=== PATIENT | female | born 1970 | race American Indian/Alaskan Native ===

== ENCOUNTER 2016-11-16 11:13 | Emergency (ER) | payer MEDICAID ==
--- NOTE | 2016-11-16 11:58 | Emergency Department Report ---
Entered by NAEL ROMERO, acting as scribe for VAUGHN HAMILTON PA. Chief Complaint: Abdominal Pain Stated Complaint: LEFT EYE INJURY Time Seen by Provider: 11/16/16 11:48 - HPI History of Present Illness: Patient c/o left eye pain that began last night. Patient states she was reaching down and a fake plant stuck her in the eye. Describes pain as aching. Notes bleeding from left eye yesterday. Reports waking up with crusts in her eyes this morning. Reports left eye redness. Denies blurry vision. Patient also c/o of a possible UTI. Notes Hx of UTI Denies abdominal pain, nausea, and vomiting. Reports dysuria. Patient states her dysuria is relieved some with drinking water and cranberry juice. - ROS Review of Systems: All systems are negative unless stated in the HPI above. - Exam Vital Signs: Vital Signs 11/16/16 11:26 Temperature 99.4 F Pulse Rate 65 Respiratory 20 Rate Blood Pressure 128/80 O2 Sat by Pulse 100 Oximetry Physical Exam: GENERAL: Patient is alert and oriented x 3. No apparent distress, normal gait, atraumatic. Eye: Vision intact. Extraocular movements are intact. PERRL. left sclerae erythematous, mild ecchymoses on right side of the left eye, ABDOMEN: Soft, nondistended. Nontender to palpation on all quadrants. MSE screening note: Focused history and physical exam performed. Due to findings the following was ordered: ED Medical Decision Making - Medical Decision Making Patient screened by provider in triage area. Lab work sent in for patient. Patient to be seen by another provider on fast track side. ED Disposition for MSE Condition: Stable Instructions: Abdominal Pain (ED) This documentation as recorded by the scribe,NAEL ROMERO,accurately reflects the service I personally performed and the decisions made by ALFONSO mansfield OYINLOLA A, PA.
[2016-11-16 12:08] LABS: Bilirubin,Urine NEG (Negative); Blood,Urine SM (Negative); Ketones,Urine NEG (Negative); Leukocyte Esterase,Urine NEG (Negative); Mucus,Urine FEW /HPF; Nitrite,Urine NEG (Negative); Protein,Urine <15 mg/dL mg/dL (Negative); Urobilinogen,Urine < 2.0 mg/dL (<2.0); WBC,Urine < 1.0 /HPF (0.0-6.0)
[2016-11-16] MEDS ORDERED: FUL-GLO OP ONE (13:13)
[2016-11-16] MEDS ORDERED: TETRACAINE 0.5% OU ONE (13:13)
[2016-11-16] MEDS ORDERED: MOTRIN PO ONE (13:14)
--- NOTE | 2016-11-16 13:22 | Emergency Department Report ---
ED Eye Problem HPI - General Chief complaint: Abdominal Pain Stated complaint: LEFT EYE INJURY Time Seen by Provider: 11/16/16 11:56 Source: patient Mode of arrival: Ambulatory Limitations: No Limitations - History of Present Illness Initial comments: 46-year-old female presents with complaint of left eye pain. Patient states that yesterday while bending over to reach for something on the ground at home she accidentally poked her left eye with a dry branch sticking out of a floral arrangement. Patient states she felt pain immediately afterward and has had slightly blurry vision since. Patient visibly has redness of the conjunctiva of the left eye and injection. Patient states she does not wear glasses or contacts. States she irrigated her eye afterward. Patient is unaware of tetanus status. MD chief complaint: eye pain, eye redness Onset/Timin -: days(s) Onset Description: sudden Location: left eye If Injury: direct trauma (patient states she accidentally poked herself with a dry piece of branch on a floral arrangement) Severity: moderate Severity scale (0 -10): 5 If Pain, Quality: sharp Consistency: constant Context: trauma Treatments Prior to Arrival: irrigated eye - Related Data Previous Rx's Medication Instructions Recorded Last Taken Type Acetamin/Codeine 120-12Mg/5 ml 5 ml PO TID #60 ml 04/21/16 Unknown Rx [Tylenol/Codeine] Glycerin/Propylene Glycol 15 ml OP Q4H #1 bottle 11/16/16 Unknown Rx [Artificial Tears Drops] Ibuprofen [Motrin] 600 mg PO Q8H PRN #25 tablet 11/16/16 Unknown Rx Tobramycin 0.3% [Tobrex] 1 drop OS Q4H #1 bottle 11/16/16 Unknown Rx Allergies Allergy/AdvReac Type Severity Reaction Status Date / Time No Known Drug Allergies Allergy Unknown Verified 10/24/14 14:09 ED Review of Systems ROS: Stated complaint: LEFT EYE INJURY Other details as noted in HPI Constitutional: denies: chills, fever Eyes: eye pain, eye discharge (watery eye discharge). denies: vision change ENT: denies: ear pain, throat pain Respiratory: denies: cough, shortness of breath, wheezing Cardiovascular: denies: chest pain, palpitations Endocrine: no symptoms reported Gastrointestinal: denies: abdominal pain, nausea, diarrhea Genitourinary: denies: urgency, dysuria, discharge Musculoskeletal: denies: back pain, joint swelling, arthralgia Skin: denies: rash, lesions Neurological: denies: headache, weakness, paresthesias Psychiatric: denies: anxiety, depression Hematological/Lymphatic: denies: easy bleeding, easy bruising ED Past Medical Hx - Past Medical History Hx Hypertension: No Hx Diabetes: No Hx Liver Disease: No Hx Renal Disease: No Hx Sickle Cell Disease: No Hx Arthritis: No Hx Seizures: No Hx Asthma: No Hx COPD: No Hx HIV: No Additional medical history: Bronchitis - Surgical History Additional Surgical History: carpol tunnel, tubal ligation, Fibroid removal - Social History Smoking Status: Current Every Day Smoker Substance Use Type: None, Alcohol - Medications Home Medications: Home Medications Medication Instructions Recorded Confirmed Last Taken Type Acetamin/Codeine 120-12Mg/5 ml 5 ml PO TID #60 ml 04/21/16 Unknown Rx [Tylenol/Codeine] Glycerin/Propylene Glycol 15 ml OP Q4H #1 bottle 11/16/16 Unknown Rx [Artificial Tears Drops] Ibuprofen [Motrin] 600 mg PO Q8H PRN #25 tablet 11/16/16 Unknown Rx Tobramycin 0.3% [Tobrex] 1 drop OS Q4H #1 bottle 11/16/16 Unknown Rx ED Physical Exam - General Limitations: No Limitations General appearance: alert, in no apparent distress - Head Head exam: Present: atraumatic, normocephalic - Eye Eye exam: Present: normal appearance, PERRL, EOMI - Expanded Eye Exam Expanded Eyelids: Laceration: Left (small less than 1 cm vertical laceration on cornea near left medial canthus on fluorescein stain) Pupils: Regular, Round: Bilateral, Reactive: Bilateral Sclera/Conjunctival: Injection: Left (significant injection of the conjunctiva in the left eye more towards the medial canthus) Anterior chamber: Normal Inspection: Bilateral Visual acuity (R) = 20/: 20 Visual acuity (L) = 20/: 20 - ENT ENT exam: Present: mucous membranes moist - Neck Neck exam: Present: normal inspection - Respiratory Respiratory exam: Present: normal lung sounds bilaterally. Absent: respiratory distress - Cardiovascular Cardiovascular Exam: Present: regular rate, normal rhythm. Absent: systolic murmur, diastolic murmur, rubs, gallop - GI/Abdominal GI/Abdominal exam: Present: soft, normal bowel sounds - Extremities Exam Extremities exam: Present: normal inspection - Back Exam Back exam: Present: normal inspection - Neurological Exam Neurological exam: Present: alert, oriented X3 - Psychiatric Psychiatric exam: Present: normal affect, normal mood - Skin Skin exam: Present: warm, dry, intact, normal color. Absent: rash ED Course Vital Signs 11/16/16 11/16/16 11:26 13:33 Temperature 99.4 F Pulse Rate 65 Respiratory 20 18 Rate Blood Pressure 128/80 O2 Sat by Pulse 100 Oximetry ED Medical Decision Making - Medical Decision Making A/P: Large corneal abrasion/laceration to left cornea near medial canthus 1-CT orbits shows no globe rupture or visible foreign body on CT 2-extraocular movements are intact, vision is 20/20 both eyes and 20/20 in left eye, 20/20 right eye. Patient's vision has been unaffected by this incident no visible laceration overlying pupil or iris laceration is on cornea near medial canthus 3-tobramycin drops, tetanus updated today, artificial tears, Motrin when necessary 4-I provided patient with ophthalmology referrals and advised her to follow-up within the next few days to mitigate any long-term damage to the cornea or eyes. Patient stated she understood the importance of doing so and would do so. Critical care attestation.: If time is entered above; I have spent that time in minutes in the direct care of this critically ill patient, excluding procedure time. ED Disposition Clinical Impression: Corneal abrasion, left Qualifiers: Encounter type: initial encounter Qualified Code(s): S05.02XA - Injury of conjunctiva and corneal abrasion without foreign body, left eye, initial encounter Disposition: DC-01 TO HOME OR SELFCARE Is pt being admited?: No Does the pt Need Aspirin: No Condition: Stable Instructions: Corneal Abrasion (ED) Prescriptions: Glycerin/Propylene Glycol [Artificial Tears Drops] 15 ml OP Q4H #1 bottle Ibuprofen [Motrin] 600 mg PO Q8H PRN #25 tablet PRN Reason: Pain Tobramycin 0.3% [Tobrex] 1 drop OS Q4H #1 bottle Referrals: CHARLIE DUMONT MD [Staff Physician] - 3-5 Days Forms: Work/School Release Form(ED) Time of Disposition: 14:34
[2016-11-16] MEDS ORDERED: BOOSTRIX IM ONE (13:29)
--- NOTE | 2016-11-16 14:05 | Cat Scan Report ---
CT ORBITS WITHOUT CONTRAST: HISTORY: Injury, left eye pain. TECHNIQUE: Helical CT with sagittal and coronal reformatted images. FINDINGS: The visualized osseous structures are intact without fracture or malalignment. The paranasal sinuses are clear. The nasal septum is midline. The orbital rims are intact. The globes are symmetric with homogeneous density. The retro-orbital fat demonstrates no inflammatory stranding. The extraocular muscles are symmetric. The extraocular muscles and optic nerves demonstrate normal course. IMPRESSION: Unremarkable CT of the orbits.
[2016-11-16 14:43] VITALS: BP 132/81
== END 2016-11-16 14:44 | disposition home or self-care (01) ==
LOC: ED 11:13
DX: S05.02XA Injury of conjunctiva and corneal abrasion without foreign body, left eye, initial encounter (principal); F17.210 Nicotine dependence, cigarettes, uncomplicated; W22.8XXA Striking against or struck by other objects, initial encounter; Y93.89 Activity, other specified; Y92.89 Other specified places as the place of occurrence of the external cause; Y99.8 Other external cause status
CPT/HCPCS: 70480; 81001; 81025; 90471; 90715; 99284

== ENCOUNTER 2017-06-03 09:24 | Emergency (ER) | payer MEDICAID ==
[2017-06-03] MEDS ORDERED: PROVENTIL IH ONE (13:29)
[2017-06-03] MEDS ORDERED: TYLENOL/CODEINE PO ONE (13:29)
[2017-06-03] MEDS ORDERED: TORADOL IM ONE (13:29)
[2017-06-03] MEDS ORDERED: TORADOL ONE (13:34)
[2017-06-03 13:54] LABS: HCG Qualitative,Urine Negative (Negative)
[2017-06-03 14:01] LABS: Bacteria,Urine 4+ /HPF (Negative); Bilirubin,Urine NEG (Negative); Blood,Urine SM (Negative); Mucus,Urine 3+ /HPF; Nitrite,Urine POS (Negative)
[2017-06-03 14:02] LABS: Color,Urine Yellow (Yellow)
--- NOTE | 2017-06-03 14:20 | XRay Report ---
ROUTINE CHEST, TWO VIEWS: HISTORY: Wheezing, cough. The trachea, heart, mediastinal contour, lung brown and bony thorax are unremarkable. IMPRESSION: Unremarkable chest x-ray.
--- NOTE | 2017-06-03 15:43 | Emergency Department Report ---
Minor Respiratory - HPI Chief Complaint: Upper Respiratory Infection Stated Complaint: BAD COLD Duration: 5 Days Pain Location: Other (bodyaches, pleuritic chest pain while coughing) Minor Respiratory: Yes Rhinorrhea, Yes Able to Tolerate Fluids, Yes Cough, Yes Chest Pain (pleuritic while coughing), Yes Shortness of Breath, Yes Fever, No Sore Throat, No Ear Pain, No Sick Contacts, No Hemoptysis Other History: 46 year old female presents to ED with dry cough, congestion, wheezing, pleuritic chest pain when coughing, bodyaches x6 days. patient states she has history of chronic bronchitis. patient states LMP was today. ED Review of Systems ROS: Stated complaint: BAD COLD Other details as noted in HPI Constitutional: fever. denies: chills Eyes: denies: eye pain, eye discharge, vision change ENT: ear pain, congestion. denies: throat pain Respiratory: cough, shortness of breath, wheezing Cardiovascular: chest pain (pleuritic). denies: palpitations Endocrine: no symptoms reported Gastrointestinal: denies: abdominal pain, nausea, diarrhea Genitourinary: denies: urgency, dysuria, discharge Musculoskeletal: denies: back pain, joint swelling, arthralgia Skin: denies: rash, lesions Neurological: denies: headache, weakness, paresthesias, confusion, abnormal gait , vertigo Psychiatric: denies: anxiety, depression Hematological/Lymphatic: denies: easy bleeding, easy bruising ED Past Medical Hx - Past Medical History Previous Medical History?: Yes Hx Hypertension: No Hx Diabetes: No Hx Liver Disease: No Hx Renal Disease: No Hx Sickle Cell Disease: No Hx Arthritis: No Hx Seizures: No Hx Asthma: No Hx COPD: No Hx HIV: No Additional medical history: Bronchitis - Surgical History Past Surgical History?: Yes Additional Surgical History: carpol tunnel, tubal ligation, Fibroid removal - Social History Smoking Status: Current Every Day Smoker Substance Use Type: Non Opiate Pain, Other - Medications Home Medications: Home Medications Medication Instructions Recorded Confirmed Last Taken Type Acetamin/Codeine 120-12Mg/5 ml 5 ml PO TID #60 ml 04/21/16 Unknown Rx [Tylenol/Codeine] Glycerin/Propylene Glycol 15 ml OP Q4H #1 bottle 11/16/16 Unknown Rx [Artificial Tears Drops] Ibuprofen [Motrin] 600 mg PO Q8H PRN #25 tablet 11/16/16 Unknown Rx Tobramycin 0.3% [Tobrex] 1 drop OS Q4H #1 bottle 11/16/16 Unknown Rx ALBUTEROL Inhaler [ProAir HFA 1 puff IH TID #1 inha 06/03/17 Unknown Rx Inhaler] Sulfamethoxazole/Trimethoprim 1 each PO BID #6 tablet 06/03/17 Unknown Rx [Bactrim DS TAB] methylPREDNISolone [Medrol] 4 mg PO QAM #1 tab.ds.pk 06/03/17 Unknown Rx Minor Respiratory Exam - Exam General: Vital signs noted. No distress. Alert and acting appropriately. HEENT: Yes Moist Mucous Membranes, No Pharyngeal Erythema, No Pharyngeal Exudates, No Rhinorrhea, No Conjuctival Injection, No Frontal Tenderness, No Maxillary Tenderness Ear: Neither TM Bulge, Neither TM Erythema, Neither EAC Pain, Neither EAC Discharge Neck: Yes Supple, No Adenopathy Lungs: Yes Good Air Exchange, Yes Wheezes, Yes Cough, No Ronchi, No Stridor, No Labored Respirations, No Retractions, No Use of Accessory Muscles, No Other Abnormal Lung Sounds Heart: Yes Regular, No Murmur Abdomen: Yes Normal Bowel Sounds, No Tenderness, No Peritoneal Signs Skin: No Rash, No Edema Neurologic: Alert and oriented, no deficits. Musculoskeletal: Unremarkable. ED Course Vital Signs 06/03/17 06/03/17 10:17 13:43 Temperature 99.4 F Pulse Rate 63 Respiratory 18 22 Rate Blood Pressure 111/74 O2 Sat by Pulse 100 Oximetry ED Medical Decision Making - Lab Data Abnormal Lab Results 06/03/17 13:43 Urine Color Yellow Urine Turbidity Cloudy Urine pH 5.0 Ur Specific [place] 1.025 Urine Protein 30 mg/dl Urine Glucose (UA) Neg Urine Ketones Tr Urine Blood Sm Urine Nitrite Pos Ur Reducing Substances Not Reportable Urine Bilirubin Neg Urine Ictotest Not Reportable Urine Urobilinogen 4.0 Ur Leukocyte Esterase Neg Urine WBC (Auto) 19.0 H Urine RBC (Auto) 3.0 U Epithel Cells (Auto) 4.0 Urine Bacteria (Auto) 4+ Urine Mucus 3+ Urine HCG, Qual Negative Vital Signs (72 hours) 06/03/17 06/03/17 06/03/17 10:17 13:43 15:46 Temperature 99.4 F Pulse Rate 63 66 Respiratory 18 22 20 Rate Blood Pressure 111/74 Blood Pressure 118/74 [Left] O2 Sat by Pulse 100 100 Oximetry - Radiology Data Radiology results: report reviewed Chest xray unremarkable chest xray per radiologist. - Medical Decision Making 46 year old female presents to ED with cough, cold, congestion, wheezing, mild SOB, intermittent fever and bodyaches. patient states she has history of chronic bronchitis. patient has urine positive for UTI. patient has no acute findings on imaging. patient has had 1 breathing tx during ED visit and wheezing completely resolved. patient states she feels better. patient is stable , neurologically intact and in no acute distress. Critical care attestation.: If time is entered above; I have spent that time in minutes in the direct care of this critically ill patient, excluding procedure time. ED Disposition Clinical Impression: URI (upper respiratory infection) Qualifiers: URI type: unspecified viral URI Qualified Code(s): J06.9 - Acute upper respiratory infection, unspecified UTI (urinary tract infection) Qualifiers: Urinary tract infection type: acute cystitis Hematuria presence: without hematuria Qualified Code(s): N30.00 - Acute cystitis without hematuria Disposition: DC- TO HOME OR SELFCARE Is pt being admited?: No Does the pt Need Aspirin: No Condition: Stable Instructions: Urinary Tract Infection in Women (ED), Viral Syndrome (ED) Prescriptions: ALBUTEROL Inhaler [ProAir HFA Inhaler] 1 puff IH TID #1 inha methylPREDNISolone [Medrol] 4 mg PO QAM #1 tab.ds.pk Sulfamethoxazole/Trimethoprim [Bactrim DS TAB] 1 each PO BID #6 tablet Referrals: KENZIE DOTY MD [Primary Care Provider] - 3-5 Days Forms: Work/School Release Form(ED)
[2017-06-03 15:47] VITALS: BP 118/74
== END 2017-06-03 15:30 | disposition home or self-care (01) ==
LOC: ED 09:24
DX: J06.9 Acute upper respiratory infection, unspecified (principal); N30.00 Acute cystitis without hematuria
CPT/HCPCS: 71046; 81001; 81025; 96372; 99284; J1885

== ENCOUNTER 2017-06-24 10:36 | Outpatient (CLI) | payer OTHER ==
--- NOTE | 2017-06-24 22:49 | XRay Report ---
FINAL REPORT PROCEDURE: XR HAND BILAT 2V TECHNIQUE: Bilateral hand radiographs, PA views of each hand. HISTORY: CARPAL TUNNEL BILATERAL COMPARISON: No prior studies are available for comparison. FINDINGS: RIGHT HAND: Fracture (s) and/or Dislocation(s): None. Alignment: Normal. Joint space(s): Normal. Soft tissues: Normal. Bone mineralization: Normal. Foreign bodies: None . LEFT HAND: Fracture (s) and/or Dislocation(s): None. Alignment: Normal. Joint space(s): Normal. Soft tissues: Normal. Bone mineralization: Normal. Foreign bodies: None . IMPRESSION: Normal Examination.
== END 2017-06-24 10:37 | disposition home or self-care (01) ==
LOC: XRAY 10:36
PROVIDERS: ATTEND Internal Medicine
DX: G56.03 Carpal tunnel syndrome, bilateral upper limbs (principal)

== ENCOUNTER 2020-03-15 21:51 | Emergency (ER) | payer MEDICAID ==
[2020-03-15 23:40] VITALS: BP 131/83
== END 2020-03-16 10:09 | disposition left against medical advice (07) ==
LOC: ED 21:51
DX: M79.18 Myalgia, other site (principal); Z53.21 Procedure and treatment not carried out due to patient leaving prior to being seen by health care provider

== ENCOUNTER 2020-04-16 20:06 | Emergency (ER) | payer MEDICAID ==
[2020-04-16 21:03] VITALS: BP 120/67
--- NOTE | 2020-04-16 22:21 | XRay Report ---
RIGHT FINGER(S) 3 VIEW(S) INDICATION / CLINICAL INFORMATION: MAIN COMPARISON: Bilateral hand radiographs 06/24/2017 FINDINGS: BONES / JOINT(S): Dislocation of the ring finger (fourth digit) proximal interphalangeal joint with t he base of the middle phalanx subjacent to the head of the proximal phalanx and approximately 1 cm of overlap. No associated acute fracture. 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 SOFT TISSUES: Moderate ring finger swelling. ADDITIONAL FINDINGS: None. Signer Name: Diony Foster MD Signed: 04/16/2020 10:16 PM Workstation Name: [id number]
[2020-04-17] MEDS ORDERED: HYDROcodone/ACETAMINOPHEN 5-325 MG TAB PO ONE (01:16)
--- NOTE | 2020-04-17 01:20 | Emergency Department Report ---
ED General Adult HPI - General Chief complaint: Extremity Injury, Upper Stated complaint: RIGHT RING FINGER PAIN Time Seen by Provider: 04/17/20 01:13 Source: patient Mode of arrival: Ambulatory Limitations: No Limitations - History of Present Illness Initial comments: pt is a 49 y/o aaf with who presents for right 4th finger dislocation. She states she was lifting boxes and felt a pop in her right 4th finger at approximately 4pm today. Symptoms now include pain 8/10 sharp and swelling. pain exacerbated by movement and palpation. pain is relieved by nothing tried. There is no numbness or tingling, there is mild 4th finger deformity. - Related Data Previous Rx's Medication Instructions Recorded Last Taken Type Acetamin/Codeine 120-12Mg/5 ml 5 ml PO TID #60 ml 04/21/16 Unknown Rx [Tylenol/Codeine] Glycerin/Propylene Glycol 15 ml OP Q4H #1 bottle 11/16/16 Unknown Rx [Artificial Tears Drops] Ibuprofen [Motrin] 600 mg PO Q8H PRN #25 tablet 11/16/16 Unknown Rx Tobramycin 0.3% [Tobrex] 1 drop OS Q4H #1 bottle 11/16/16 Unknown Rx Albuterol Mdi (or & Nicu Only) 1 puff IH TID #1 inha 06/03/17 Unknown Rx [ProAir HFA Inhaler] Sulfamethoxazole/Trimethoprim 1 each PO BID #6 tablet 06/03/17 Unknown Rx [Bactrim DS TAB] methylPREDNISolone [Medrol] 4 mg PO QAM #1 tab.ds.pk 06/03/17 Unknown Rx Cyclobenzaprine [Flexeril] 10 mg PO TID PRN #14 tablet 10/30/17 Unknown Rx Ibuprofen [Motrin] 800 mg PO Q8HR PRN #20 tablet 10/30/17 Unknown Rx Ibuprofen [Motrin] 800 mg PO Q8HR PRN #30 tablet 01/26/19 Unknown Rx Cyclobenzaprine [Flexeril] 10 mg PO BID PRN #10 tablet 04/17/20 Unknown Rx traMADoL [Ultram] 50 mg PO Q6HR PRN #12 tablet 04/17/20 Unknown Rx Allergies Allergy/AdvReac Type Severity Reaction Status Date / Time No Known Drug Allergies Allergy Unknown Verified 10/30/17 13:51 ED Review of Systems ROS: Stated complaint: RIGHT RING FINGER PAIN Other details as noted in HPI Constitutional: denies: chills, fever Eyes: denies: eye pain, eye discharge, vision change ENT: denies: ear pain, throat pain Respiratory: denies: cough, shortness of breath, wheezing Cardiovascular: denies: chest pain, palpitations Endocrine: no symptoms reported Gastrointestinal: denies: abdominal pain, nausea, diarrhea Genitourinary: denies: urgency, dysuria, discharge Musculoskeletal: joint swelling (right 4th digit). denies: back pain, arthralgia Skin: denies: rash, lesions Neurological: denies: headache, weakness, paresthesias Psychiatric: denies: anxiety, depression Hematological/Lymphatic: denies: easy bleeding, easy bruising ED Past Medical Hx - Past Medical History Hx Hypertension: No Hx Diabetes: No Hx Liver Disease: No Hx Renal Disease: No Hx Sickle Cell Disease: No Hx Arthritis: No Hx Seizures: No Hx Asthma: No Hx COPD: No Hx HIV: No Additional medical history: Bronchitis - Surgical History Additional Surgical History: carpal tunnel, tubal ligation, Fibroid removal - Social History Smoking Status: Current Every Day Smoker Substance Use Type: Alcohol - Medications Home Medications: Home Medications Medication Instructions Recorded Confirmed Last Taken Type Acetamin/Codeine 120-12Mg/5 ml 5 ml PO TID #60 ml 04/21/16 Unknown Rx [Tylenol/Codeine] Glycerin/Propylene Glycol 15 ml OP Q4H #1 bottle 11/16/16 Unknown Rx [Artificial Tears Drops] Ibuprofen [Motrin] 600 mg PO Q8H PRN #25 tablet 11/16/16 Unknown Rx Tobramycin 0.3% [Tobrex] 1 drop OS Q4H #1 bottle 11/16/16 Unknown Rx Albuterol Mdi (or & Nicu Only) 1 puff IH TID #1 inha 06/03/17 Unknown Rx [ProAir HFA Inhaler] Sulfamethoxazole/Trimethoprim 1 each PO BID #6 tablet 06/03/17 Unknown Rx [Bactrim DS TAB] methylPREDNISolone [Medrol] 4 mg PO QAM #1 tab.ds.pk 06/03/17 Unknown Rx Cyclobenzaprine [Flexeril] 10 mg PO TID PRN #14 tablet 10/30/17 Unknown Rx Ibuprofen [Motrin] 800 mg PO Q8HR PRN #20 tablet 10/30/17 Unknown Rx Ibuprofen [Motrin] 800 mg PO Q8HR PRN #30 tablet 01/26/19 Unknown Rx Cyclobenzaprine [Flexeril] 10 mg PO BID PRN #10 tablet 04/17/20 Unknown Rx traMADoL [Ultram] 50 mg PO Q6HR PRN #12 tablet 04/17/20 Unknown Rx ED Physical Exam - General Limitations: No Limitations General appearance: alert, in no apparent distress - Head Head exam: Present: atraumatic, normocephalic - Eye Eye exam: Present: normal appearance, EOMI Pupils: Present: normal accommodation - ENT ENT exam: Present: mucous membranes moist - Neck Neck exam: Present: normal inspection, full ROM. Absent: tenderness - Respiratory Respiratory exam: Present: normal lung sounds bilaterally. Absent: respiratory distress, wheezes, stridor - Cardiovascular Cardiovascular Exam: Present: regular rate, normal rhythm, normal heart sounds. Absent: systolic murmur, diastolic murmur, rubs, gallop - GI/Abdominal GI/Abdominal exam: Present: soft, normal bowel sounds. Absent: distended, t enderness - Rectal Rectal exam: Present: deferred - Extremities Exam Extremities exam: Absent: normal inspection - Back Exam Back exam: Present: normal inspection - Neurological Exam Neurological exam: Present: alert, oriented X3, CN II-XII intact, normal gait, reflexes normal - Expanded Neurological Exam Expanded Patient oriented to: Present: person, place, time Speech: Present: fluid speech Sensory exam: Upper Extremity Light Touch: Normal, Upper Extremity Pin Prick: Normal, Upper Extremity Temperature: Normal, UE 2 Point Discrimination: Normal Motor strength exam: RUE: 5, LUE: 5 Best Eye Response (Jeovanny): (4) open spontaneously Best Motor Response (Jeovanny): (6) obeys commands Best Verbal Response ([place]): (5) oriented Jeovanny Total: 15 - Psychiatric Psychiatric exam: Present: normal affect, normal mood - Skin Skin exam: Present: warm, dry, intact, normal color. Absent: rash ED Course Vital Signs 04/16/20 21:00 Temperature 98.6 F Pulse Rate 69 Respiratory 18 Rate Blood Pressure 120/67 O2 Sat by Pulse 97 Oximetry - Procedure Description Procedures done: right 4ht digit medial phalynx disolcation, via xray, distal pulses intact mapping engineer <3 sec bilat, anesthesia with 1% lidocaine plain x2 cc via di gital block, anesthesia obtained, dislocation reduced via direct traction, CMS remains intact, pain relieved, finger molly taped, mapping engineer <3 sec rom improved, pain relieved, pt tolerated procedure with minimal distress. ED Medical Decision Making - Radiology Data Radiology results: report reviewed, image reviewed Findings Reporting MD: Michael Foster Dictation Time: April 16, 2020 21:16 Insurance Policy Issue Clerk: Not available Individualized Education Plan Aide Date: RIGHT FINGER(S) 3 VIEW(S) INDICATION / CLINICAL INFORMATION: MAIN COMPARISON: Bilateral hand radiographs 06/24/2017 FINDINGS: BONES / JOINT(S): Dislocation of the ring finger (fourth digit) proximal interphalangeal joint with the base of the middle phalanx subjacent to the head of the proximal phalanx and approximately 1 cm of overlap. No associated acute fracture. 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 SOFT TISSUES: Moderate ring finger swelling. ADDITIONAL FINDINGS: None. Signer Name: Michael Foster MD Signed: 04/16/2020 9:16 PM Workstation Name: [id number] Post reduction, joint is reduced, no fracture - Medical Decision Making dislocation 4th finger, see procedure note, reduction sucessful distal pulses intact, rom improved, mapping engineer <3 sec, post reduction xray confirms reduction, pt will follow up with ortho in 2-3 days, nsaids prn pain, pt dc't to home in stable condition at this time. pt tolerated procedure with minimal . Critical care attestation.: If time is entered above; I have spent that time in minutes in the direct care of this critically ill patient, excluding procedure time. ED Disposition Clinical Impression: Dislocation, finger closed Qualifiers: Encounter type: initial encounter Qualified Code(s): S63.259A - Unspecified dislocation of unspecified finger, initial encounter Disposition: DC-01 TO HOME OR SELFCARE Is pt being admited?: No Does the pt Need Aspirin: No Condition: Stable Instructions: Finger or Thumb Dislocation Prescriptions: Cyclobenzaprine [Flexeril] 10 mg PO BID PRN #10 tablet PRN Reason: Muscle Spasm traMADoL [Ultram] 50 mg PO Q6HR PRN #12 tablet PRN Reason: Pain Referrals: KENZIE DOTY MD [Primary Care Provider] - 3-5 Days MICHAEL GREEN MD [Staff Physician] - 3-5 Days Forms: Work/School Release Form(ED) Time of Disposition: 01:42
--- NOTE | 2020-04-17 02:21 | XRay Report ---
RIGHT HAND RADIOGRAPH, 2 VIEWS INDICATION / CLINICAL INFORMATION: post reduction right 4th digit dislocation COMPARISON: Right finger radiographs one day prior FINDINGS: BONES / JOINT(S): Successful reduction of the fourth digit, which now appears in normal anatomic alig nment. No acute displaced fracture identified. SOFT TISSUES: Soft tissue swelling of the fourth digit. ADDITIONAL FINDINGS: None. Signer Name: Ailin Stovall MD Signed: 04/17/2020 2:17 AM Workstation Name: [id number]
== END 2020-04-17 01:55 | disposition home or self-care (01) ==
LOC: ED 20:06
DX: S63.259A Unspecified dislocation of unspecified finger, initial encounter (principal); F17.200 Nicotine dependence, unspecified, uncomplicated; Z98.51 Tubal ligation status; Z79.899 Other long term (current) drug therapy; X58.XXXA Exposure to other specified factors, initial encounter; Y93.89 Activity, other specified; Y92.89 Other specified places as the place of occurrence of the external cause; Y99.8 Other external cause status

== ENCOUNTER 2020-04-23 09:20 | Emergency (ER) | payer MEDICAID ==
[2020-04-23 09:27] VITALS: BP 125/59
[2020-04-23] MEDS ORDERED: TETRACAINE 0.5% OPHTH SOLN 4ML OU ONE (10:06)
[2020-04-23] MEDS ORDERED: FLUORESCEIN 1 MG STRIP OP ONE (10:06)
--- NOTE | 2020-04-23 10:20 | Emergency Department Report ---
Eye Injury/Foreign Body - HPI Duration: 2 Days Eye Symptoms: Eye Pain: No, Blurred Vision: No, Eye Redness: No, Grinding/Hammering Metal: No, Contact Lens Use: No, Photophobia: No Other History: Is a very pleasant 49-year-old female presents the emergency department chief complaint of right eye pain with photosensitivity over the past 2 days. Patient reports she was playing with her nephew when he accidentally stuck his finger in her eye she has been having discomfort since. She has been applying [id number] lubricating eyedrops with only minimal relief of her symptoms. She denies any other injuries. Reports the pain is a 10 out of 10 aggravated with any movement of the eye and with light exposure. ED Review of Systems ROS: Stated complaint: RIGHT EYE PAIN Other details as noted in HPI Constitutional: denies: chills, fever Eyes: as per HPI, eye pain, eye discharge, vision change ENT: denies: ear pain, throat pain Respiratory: denies: cough, shortness of breath, wheezing Cardiovascular: denies: chest pain, palpitations Endocrine: no symptoms reported Gastrointestinal: denies: abdominal pain, nausea, diarrhea Genitourinary: denies: urgency, dysuria, discharge Musculoskeletal: denies: back pain, joint swelling, arthralgia Skin: denies: rash, lesions Neurological: denies: headache, weakness, paresthesias Psychiatric: denies: anxiety, depression Hematological/Lymphatic: denies: easy bleeding, easy bruising ED Past Medical Hx - Past Medical History Previous Medical History?: Yes Hx Hypertension: No Hx Diabetes: No Hx Liver Disease: No Hx Renal Disease: No Hx Sickle Cell Disease: No Hx Arthritis: No Hx Seizures: No Hx Asthma: No Hx COPD: No Hx HIV: No Additional medical history: Bronchitis - Surgical History Past Surgical History?: Yes Additional Surgical History: carpal tunnel, tubal ligation, Fibroid removal - Social History Smoking Status: Current Every Day Smoker Substance Use Type: Alcohol - Medications Home Medications: Home Medications Medication Instructions Recorded Confirmed Last Taken Type Acetamin/Codeine 120-12Mg/5 ml 5 ml PO TID #60 ml 04/21/16 Unknown Rx [Tylenol/Codeine] Glycerin/Propylene Glycol 15 ml OP Q4H #1 bottle 11/16/16 Unknown Rx [Artificial Tears Drops] Ibuprofen [Motrin] 600 mg PO Q8H PRN #25 tablet 11/16/16 Unknown Rx Tobramycin 0.3% [Tobrex] 1 drop OS Q4H #1 bottle 11/16/16 Unknown Rx Albuterol Mdi (or & Nicu Only) 1 puff IH TID #1 inha 06/03/17 Unknown Rx [ProAir HFA Inhaler] Sulfamethoxazole/Trimethoprim 1 each PO BID #6 tablet 06/03/17 Unknown Rx [Bactrim DS TAB] methylPREDNISolone [Medrol] 4 mg PO QAM #1 tab.ds.pk 06/03/17 Unknown Rx Cyclobenzaprine [Flexeril] 10 mg PO TID PRN #14 tablet 10/30/17 Unknown Rx Ibuprofen [Motrin] 800 mg PO Q8HR PRN #20 tablet 10/30/17 Unknown Rx Ibuprofen [Motrin] 800 mg PO Q8HR PRN #30 tablet 01/26/19 Unknown Rx Cyclobenzaprine [Flexeril] 10 mg PO BID PRN #10 tablet 04/17/20 Unknown Rx traMADoL [Ultram] 50 mg PO Q6HR PRN #12 tablet 04/17/20 Unknown Rx Erythromycin [Erythromycin Ophth 10 applic OP QDAY #1 tube 04/23/20 Unknown Rx Oint] Naproxen 500 mg PO BID #20 tablet 04/23/20 Unknown Rx Eye Injury Exam - Exam General: Vital signs noted. No distress. Alert and acting appropriately. GENERAL APPEARANCE: Well-developed, well-nourished, no acute distress HEENT: Normocephalic and atraumatic. No scleral icterus. Pupils are equal, round, and reactive to light and accommodation. N there is conjunctival injection noted to the right eye. No drainage. No periorbital edema or tenderness. Oropharynx is clear. Mouth revealed good dentition, no lesions. Tympanic membranes are clear. NECK: Supple. Trachea is midline. No evidence of thyroid enlargement. No lymphadenopathy or tenderness. CHEST: Symmetric. Nontender to palpation. LUNGS: Breath sounds are equal and clear bilaterally. No wheezes, rhonchi, or rales. HEART: Regular rate and rhythm with normal S1 and S2. No murmurs, gallops, or rubs. BREASTS: Symmetrical. No skin or nipple retractions. No nipple discharges or masses. ABDOMEN: Soft, flat, and benign. No mass, tenderness, guarding, or rebound. No organomegaly or hernia. Bowel sounds are present. No CVA tenderness or flank mass. GENITOURINARY: Deferred RECTAL: Deferred EXTREMITIES: No cyanosis, clubbing, or edema. No lower extreme edema, negative Homans sign bilaterally NEUROLOGIC: No focal sensory or motor deficits are noted. Gait is normal. Cranial nerves II through XII are intact. Deep tendon reflexes are intact. PSYCHIATRIC: The patient is awake, alert, and oriented x3. Recent and remote memory is intact. Appropriate mood and affect. SKIN: Warm, dry, and well perfused. Good turgor. No lesions, nodules or rashes are noted. No onychomycosis. LYMPHATICS: No cervical, axillary, or groin adenopathy is noted. ED Course Vital Signs 04/23/20 09:24 Temperature 99.0 F Pulse Rate 88 Respiratory 20 Rate Blood Pressure 125/59 [Right] O2 Sat by Pulse 98 Oximetry ED Medical Decision Making - Medical Decision Making The patient's fluorescein stain showed a small amount of uptake at the base of the iris at the 12 o'clock position. Negative Shan sign. This is consistent with a corneal abrasion. We will treat the patient with erythromycin eye ointment and naproxen for pain recommended warm compresses and ophthalmology follow-up. Return to emerge department change or worsening symptoms. Patient verbalized understand the diagnosis, treatment plan and follow-up instructions all of her questions were answered. - Differential Diagnosis Corneal abrasion, contusion, rupture Critical care attestation.: If time is entered above; I have spent that time in minutes in the direct care of this critically ill patient, excluding procedure time. ED Disposition Clinical Impression: Corneal abrasion Qualifiers: Encounter type: initial encounter Laterality: right Qualified Code(s): S05.01XA - Injury of conjunctiva and corneal abrasion without foreign body, right eye, initial encounter Disposition: - TO HOME OR SELFCARE Is pt being admited?: No Condition: Stable Instructions: Corneal Abrasion Prescriptions: Erythromycin [Erythromycin Ophth Oint] 10 applic OP QDAY #1 tube Naproxen 500 mg PO BID #20 tablet Referrals: CHARLIE DUMONT MD [Staff Physician] - 3-5 Days Time of Disposition: 10:42
== END 2020-04-23 12:05 | disposition home or self-care (01) ==
LOC: ED 09:20
DX: S05.01XA Injury of conjunctiva and corneal abrasion without foreign body, right eye, initial encounter (principal); F17.200 Nicotine dependence, unspecified, uncomplicated; Z98.51 Tubal ligation status; Z98.890 Other specified postprocedural states; Z79.899 Other long term (current) drug therapy; X58.XXXA Exposure to other specified factors, initial encounter; Y93.89 Activity, other specified; Y92.89 Other specified places as the place of occurrence of the external cause; Y99.8 Other external cause status
CPT/HCPCS: 99282

== ENCOUNTER 2020-09-05 08:37 | Emergency (ER) | payer MEDICAID ==
--- NOTE | 2020-09-05 10:20 | Emergency Department Report ---
Blank Doc - Documentation Documentation: 50-year-old female that presents with left and right lower abdominal pain with nausea. Exam: LLQ and RLQ tenderness. 1- This initial assessment/diagnostic orders/clinical plan/ treatment(s) is/are subject to change based on pt's health status, clinical progression and re-asse ssment by fellow clinical providers in the ED. Further treatment and workup at subsequent clinical provers discretion. Patient/guardians urged not to elope from ED as their condition may be serious if not clinically assessed and managed. 2-labs 3-UA
[2020-09-05 10:43] LABS: Basophils # (Auto) 0.1 K/mm3 (0.0-0.1); Basophils % (Auto) 1.1 % (0.0-1.8); Eosinophils # (Auto) 0.2 K/mm3 (0.0-0.4); Eosinophils % (Auto) 2.8 % (0.0-4.3); Hematocrit 40.9 % (30.3-42.9); Hemoglobin 13.6 gm/dl (10.1-14.3); Lymphocytes # (Auto) 2.1 K/mm3 (1.2-5.4); Lymphocytes % (Auto) 29.2 % (13.4-35.0); Mean Corpuscular HGB Conc 33 % (30-34); Mean Corpuscular Volume 86 fl (79-97); Monocytes # (Auto) 0.6 K/mm3 (0.0-0.8); Monocytes % (Auto) 8.9 % (0.0-7.3); Platelet Count 325 K/mm3 (140-440); Red Blood Count 4.75 M/mm3 (3.65-5.03); Red Cell Distribution Width 15.1 % (13.2-15.2)
[2020-09-05 11:14] LABS: Albumin 3.8 g/dL (3.9-5); Calcium 8.9 mg/dL (8.4-10.2)
[2020-09-05] MEDS ORDERED: ONDANSETRON 4 MG ODT TAB PO ONE (11:43)
--- NOTE | 2020-09-05 11:48 | Emergency Department Report ---
HPI - General Chief Complaint: Nausea/Vomiting/Diarrhea Time Seen by Provider: 09/05/20 10:12 - HPI HPI: Room 19 The patient is a 50-year-old female present with chief complaint of abdominal pain. The patient states for the past 3 days she has had a constant pain in the left lower quadrant described as sharp in nature. Patient admits to nausea but denies vomiting. Patient admits to decreased appetite. Patient denies history of fever dysuria or hematuria. Patient denies vaginal discharge. Patient denies diarrhea. The patient states she took ibuprofen 800 mg and it did not improve her pain. The patient drove herself to the emergency department and there are no visitors present ED Past Medical Hx - Past Medical History Previous Medical History?: Yes Additional medical history: Bronchitis - Surgical History Past Surgical History?: Yes Additional Surgical History: carpal tunnel, tubal ligation, Fibroid removal - Family History Family history: no significant - Social History Smoking Status: Current Every Day Smoker (1/4 pack/day) Substance Use Type: None (Denies illicit drug use), Alcohol (Rarely) - Medications Home Medications: Home Medications Medication Instructions Recorded Confirmed Last Taken Type Acetamin/Codeine 120-12Mg/5 ml 5 ml PO TID #60 ml 04/21/16 Unknown Rx [Tylenol/Codeine] Glycerin/Propylene Glycol 15 ml OP Q4H #1 bottle 11/16/16 Unknown Rx [Artificial Tears Drops] Ibuprofen [Motrin] 600 mg PO Q8H PRN #25 tablet 11/16/16 Unknown Rx Tobramycin 0.3% [Tobrex] 1 drop OS Q4H #1 bottle 11/16/16 Unknown Rx Albuterol Mdi (or & Nicu Only) 1 puff IH TID #1 inha 06/03/17 Unknown Rx [ProAir HFA Inhaler] Sulfamethoxazole/Trimethoprim 1 each PO BID #6 tablet 06/03/17 Unknown Rx [Bactrim DS TAB] methylPREDNISolone [Medrol] 4 mg PO QAM #1 tab.ds.pk 06/03/17 Unknown Rx Cyclobenzaprine [Flexeril] 10 mg PO TID PRN #14 tablet 10/30/17 Unknown Rx Ibuprofen [Motrin] 800 mg PO Q8HR PRN #20 tablet 10/30/17 Unknown Rx Ibuprofen [Motrin] 800 mg PO Q8HR PRN #30 tablet 01/26/19 Unknown Rx Cyclobenzaprine [Flexeril] 10 mg PO BID PRN #10 tablet 04/17/20 Unknown Rx traMADoL [Ultram] 50 mg PO Q6HR PRN #12 tablet 04/17/20 Unknown Rx Erythromycin [Erythromycin Ophth 10 applic OP QDAY #1 tube 04/23/20 Unknown Rx Oint] Naproxen 500 mg PO BID #20 tablet 04/23/20 Unknown Rx HYDROcodone/APAP 5-325 [[place] 1 each PO Q6HR PRN #7 tablet 09/05/20 Unknown Rx 5/325] Promethazine [Phenergan] 25 mg PO Q6HR PRN #20 tab 09/05/20 Unknown Rx levoFLOXacin [Levaquin TAB] 500 mg PO QDAY #7 tablet 09/05/20 Unknown Rx ED Review of Systems ROS: Stated complaint: STOMACH PAIN X 4 DAYS Other details as noted in HPI Constitutional: denies: fever Eyes: denies: eye pain ENT: denies: throat pain Respiratory: no symptoms reported Cardiovascular: denies: chest pain Endocrine: no symptoms reported Gastrointestinal: abdominal pain, nausea. denies: vomiting Genitourinary: denies: dysuria, hematuria, discharge Musculoskeletal: back pain Neurological: denies: headache Physical Exam - Physical Exam Vital Signs: Vital Signs 09/05/20 08:43 Temperature 98.8 F Pulse Rate 70 Respiratory 18 Rate Blood Pressure 148/82 [Right] O2 Sat by Pulse 98 Oximetry Physical Exam: GENERAL: The patient is well-developed well-nourished female lying on stretcher not appearing to be in acute distress. [] HEENT: Normocephalic. Atraumatic. Extraocular motions are intact. Patient has moist mucous membranes. NECK: Supple. Trachea midline CHEST/LUNGS: Clear to auscultation. There is no respiratory distress noted. HEART/CARDIOVASCULAR: Regular. There is no tachycardia. There is no gallop rub or murmur. ABDOMEN: Abdomen is soft, with tenderness to palpation in the left upper quadrant, left lower quadrant and suprapubic region. There is no guarding. Patient has normal bowel sounds. There is no abdominal distention. SKIN: There is no rash. There is no edema. There is no diaphoresis. NEURO: The patient is awake, alert, and oriented. The patient is cooperative. The patient has no focal neurologic deficits. The patient has normal speech and gait. MUSCULOSKELETAL: There is bilateral CVA tenderness left greater than right. There is no evidence of acute injury. ED Course Vital Signs 09/05/20 08:43 Temperature 98.8 F Pulse Rate 70 Respiratory 18 Rate Blood Pressure 148/82 [Right] O2 Sat by Pulse 98 Oximetry ED Medical Decision Making - Lab Data Result diagrams: 09/05/20 10:09/05/20 10:29 Laboratory Tests 09/05/20 09/05/20 09/05/20 10: 10: 12:00 WBC 7.2 RBC 4.75 Hgb 13.6 Hct 40.9 MCV 86 MCH 29 MCHC 33 RDW 15.1 Plt Count 325 Lymph % (Auto) 29.2 [place] % (Auto) 8.9 H Eos % (Auto) 2.8 Baso % (Auto) 1.1 Lymph # (Auto) 2.1 [place] # (Auto) 0.6 Eos # (Auto) 0.2 Baso # (Auto) 0.1 Seg Neutrophils % 58.0 Seg Neutrophils # 4.2 Sodium 141 Potassium 4.1 Chloride 106.3 Carbon Dioxide 26 Anion Gap 13 BUN 13 Creatinine 1.6 H Estimated GFR 41 BUN/Creatinine Ratio 8 Glucose 111 H Calcium 8.9 Total Bilirubin 0.50 AST 13 ALT 13 Alkaline Phosphatase 59 Total Protein 7.0 Albumin 3.8 L Albumin/Globulin Ratio 1.2 Lipase 42 Urine Color Yellow Urine Turbidity Clear Urine pH 6.0 Ur Specific [place] 1.009 Urine Protein <15 mg/dl Urine Glucose (UA) Neg Urine Ketones Neg Urine Blood Sm Urine Nitrite Neg Urine Bilirubin Neg Urine Urobilinogen < 2.0 Ur Leukocyte Esterase Neg Urine WBC (Auto) 3.0 Urine RBC (Auto) 3.0 U Epithel Cells (Auto) 1.0 Urine Mucus Few Urine HCG, Qual Negative - Radiology Data Radiology results: report reviewed (CT abdomen pelvis), image reviewed (CT abdomen pelvis) [facility] [address] [place] [address] Cat Scan Report Signed Patient: GUILLERMO FLOREZ MR#: [id number] : 1970 Acct:[id number] Age/Sex: 50 / F ADM Date: 09/05/20 Loc: ED Attending Dr: Ordering Physician: RYAN PUCKETT MD Date of Service: 09/05/20 Procedure(s): CT abdomen pelvis wo con Accession Number(s): [id number] cc: RYAN PUCKETT MD CT abdomen pelvis wo con INDICATION: Left lower quadrant, left flank pain. COMPARISON: None TECHNIQUE: Abdominal and pelvic CT exam performed. All CT scans at this location are performed using CT dose reduction for ALARA by means of automated exposure control. FINDINGS: CT ABDOMEN and PELVIS: Lung Bases: No significant abnormality. Liver: No significant abnormality. Biliary: No significant abnormality. Spleen: No significant abnormality. Pancreas: No significant abnormality. Adrenals: No significant abnormality. Kidneys: No significant abnormality. Lymphatics: No lymphadenopathy. Vasculature: No significant abnormality. Bowel: No significant abnormality. Normal appendix. Pelvis: No significant abnormality. Osseous Structures: No aggressive osseous lesion. Additional Findings: None IMPRESSION: 1. No significant abnormality of the abdomen or pelvis. Signer Name: Robb Sebastian MD Signed: 09/05/2020 12:16 PM Workstation Name: [id number] Transcribed By: CS Dictated By: Robb Sebastian MD Electronically Authenticated By: Robb Sebastian MD Signed Date/Time: 09/05/20 1216 DD/ 1215 TD/TT: Print Cancel - Medical Decision Making Given CVA tenderness, blood and mucus seen in urinalysis I will treat the patient for UTI. Strong warnings given - Differential Diagnosis Diverticulitis, renal colic, pyelonephritis Critical care attestation.: If time is entered above; I have spent that time in minutes in the direct care of this critically ill patient, excluding procedure time. ED Disposition Clinical Impression: Left flank pain Disposition: DC-01 TO HOME OR SELFCARE Is pt being admited?: No Does the pt Need Aspirin: No Condition: Stable Instructions: Flank Pain, Adult, [id number] Additional Instructions: Return to the emergency department should you develop worsening symptoms, inability to tolerate food or liquids, high fever or any other concerns Prescriptions: levoFLOXacin [Levaquin TAB] 500 mg PO QDAY #7 tablet HYDROcodone/APAP 5-325 [[place] 5/325] 1 each PO Q6HR PRN #7 tablet PRN Reason: Pain Promethazine [Phenergan] 25 mg PO Q6HR PRN #20 tab PRN Reason: Nausea Referrals: DONN DEVINE MD [Primary Care Provider] - 3-5 Days Time of Disposition: 12:48
--- NOTE | 2020-09-05 12:21 | Cat Scan Report ---
CT abdomen pelvis wo con INDICATION: Left lower quadrant, left flank pain. COMPARISON: None TECHNIQUE: Abdominal and pelvic CT exam performed. All CT scans at this location are performed using CT dose reduction for ALARA by means of automated exposure control. FINDINGS: CT ABDOMEN and PELVIS: Lung Bases: No significant abnormality. Liver: No significant abnormality. Biliary: No significant abnormality. Spleen: No significant abnormality. Pancreas: No significant abnormality. Adrenals: No significant abnormality. Kidneys: No significant abnormality. Lymphatics: No lymphadenopathy. Vasculature: No significant abnormality. Bowel: No significant abnormality. Normal appendix. Pelvis: No significant abnormality. Osseous Structures: No aggressive osseous lesion. Additional Findings: None IMPRESSION: 1. No significant abnormality of the abdomen or pelvis. Signer Name: Robb Sebastian MD Signed: 09/05/2020 12:16 PM Workstation Name: [id number]
[2020-09-05 12:29] LABS: Bilirubin,Urine NEG (Negative); Blood,Urine SM (Negative); Color,Urine Yellow (Yellow); Mucus,Urine FEW /HPF; Protein,Urine <15 mg/dL mg/dL (Negative); Urobilinogen,Urine < 2.0 mg/dL (<2.0)
[2020-09-05 12:30] LABS: HCG Qualitative,Urine Negative (Negative)
[2020-09-05 13:31] VITALS: BP 157/87
== END 2020-09-05 13:32 | disposition home or self-care (01) ==
LOC: ED 08:37
DX: R10.32 Left lower quadrant pain (principal); R11.0 Nausea; F17.200 Nicotine dependence, unspecified, uncomplicated; Z98.890 Other specified postprocedural states; Z79.1 Long term (current) use of non-steroidal anti-inflammatories (NSAID); Z79.2 Long term (current) use of antibiotics; Z79.899 Other long term (current) drug therapy
CPT/HCPCS: 36415; 74176; 80053; 81001; 81025; 83690; 85025; Q0162

== ENCOUNTER 2021-02-17 13:12 | Emergency (ER) | payer MEDICAID, OTHER ==
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
[2021-02-17 15:15] VITALS: BP 108/56
== END 2021-02-17 15:13 | disposition home or self-care (01) ==
LOC: ED 13:12
DX: T14.8XXA Other injury of unspecified body region, initial encounter (principal); S16.1XXA Strain of muscle, fascia and tendon at neck level, initial encounter; R07.89 Other chest pain; F17.200 Nicotine dependence, unspecified, uncomplicated; V43.52XA Car driver injured in collision with other type car in traffic accident, initial encounter; W22.10XA Striking against or struck by unspecified automobile airbag, initial encounter; Y92.488 Other paved roadways as the place of occurrence of the external cause; Y93.89 Activity, other specified; Y99.8 Other external cause status
CPT/HCPCS: 99282